=== PATIENT | male | born 1975 | race Two or more races ===

== ENCOUNTER 2018-02-20 07:27 | Emergency (ER) | payer MEDICAID ==
[2018-02-20 07:31] VITALS: BP 99/89
[2018-02-20] MEDS ORDERED: CHLORDIAZEPOXIDE 25MG PREPK#6 BTL TAKEHOME ONE (07:47)
--- NOTE | 2018-02-20 07:48 | EDPHY ---
H & P Stated Complaint: Heroin withdrawal. Time Seen by Provider: 02/20/18 07:39 HPI/ROS: CHIEF COMPLAINT: Referred to ED from [facility] for Librium starter pack HISTORY OF PRESENT ILLNESS: The patient has a history of narcotic dependence. He uses approximately g of heroin a day. The patient contacted the [facility] to do detox. The patient was referred to the ED for Librium starter pack. The patient does have a history of asthma. He uses albuterol for this condition. He denies any acute dyspnea, fever or cough. The patient has no additional acute medical complaints. He has tried Suboxone in the past but has had difficulty sticking to the outpatient program required for long- term Suboxone maintenance. REVIEW OF SYSTEMS: A comprehensive 10 point review of systems is otherwise negative aside from elements mentioned in the history of present illness. Source: Patient - Personal History Current Tetanus Diphtheria and Acellular Pertussis (TDAP): Yes - Medical/Surgical History Hx Asthma: Yes Hx Chronic Respiratory Disease: No Hx Diabetes: No Hx Cardiac Disease: No Hx Renal Disease: No Hx Cirrhosis: No Hx Alcoholism: No Hx HIV/AIDS: No Hx Splenectomy or Spleen Trauma: No Other PMH: Asthma. - Social History Smoking Status: Former smoker - Physical Exam Exam: General Appearance: Alert, no distress Eyes: Pupils equal and round no pallor or injection ENT, Mouth: Mucous membranes moist Respiratory: There are no retractions, scant expiratory wheezing Cardiovascular: Regular rate and rhythm Gastrointestinal: Abdomen is soft and nontender, no masses, bowel sounds normal Neurological: A&O, normal motor function, normal sensory exam, normal cranial nerves Skin: Warm and dry, no rashes Musculoskeletal: Neck is supple nontender Extremities: symmetrical, full range of motion Constitutional: Initial Vital Signs Temperature (C) 36.6 C 02/20/18 07:28 Heart Rate 95 02/20/18 07:28 Respiratory Rate 18 02/20/18 07:28 Blood Pressure 99/89 H 02/20/18 07:28 O2 Sat (%) 93 02/20/18 07:28 O2 Delivery Mode Room Air Allergies/Adverse Reactions: No Known Allergies Allergy (Unverified 02/20/18 07:31) Home Medications: Medication Instructions Recorded Albuterol 02/20/18 Naloxone HCl [Narcan] 4 mg NS ONCE PRN #1 spray 02/20/18 Medical Decision Making ED Course/Re-evaluation: The patient is interested in detox and at the [facility]. He will be discharged there with a Librium prepack. Departure - Departure Disposition: Home, Routine, Self-Care Clinical Impression: Narcotic dependence Condition: Good Instructions: Narcotic Abuse (ED) Additional Instructions: 1. Please go to the [facility] for assistance with your narcotic withdrawal. 2. You have been provided a prescription for Narcan. The [facility] can provide you with the information on where this can be filled. Referrals: [facility] [Outside] - As per Instructions
== END 2018-02-20 08:05 | disposition home or self-care (01) ==
DX: F11.23 Opioid dependence with withdrawal (principal)